=== PATIENT | female | born 1950 | race Caucasian/White ===

== ENCOUNTER 2016-05-23 12:03 | Inpatient (IN) | payer MEDICARE, OTHER ==
[~2016-05-23] VITALS: Ht 162.6 cm; Wt 69.4 kg
--- NOTE | 2016-05-23 12:05 | NUR ---
AAOX3, BIB [facility] FROM HOME, AT 1130, WENT INSIDE HER HOME,C/O DIZZINESS,LEFT SIDED FACIAL DROOP, AND FELL ON HER KNEES,BLOOD SUGAR 118. 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 NEURO INTACT. NO FACIAL DROOPING NOTED. SKIN IS WARM AND DRY. ASSISTED TO HOSPITAL GOWN, PLACED ON MONITOR. DR REINA AT BS FOR EVAL.
--- NOTE | 2016-05-23 12:10 | NUR ---
PATIENT TRANSPORTED FOR CT HEAD VIA [facility].
[2016-05-23 12:16] LABS: BASOPHILS # (AUTO) 0.1 /CMM (0.0-0.2); BASOPHILS % (AUTO) 1.1 % (0.0-2.0); EOSINOPHILS # (AUTO) 0.2 /CMM (0.0-0.7); EOSINOPHILS % (AUTO) 1.9 % (0.0-6.0); HEMATOCRIT 40 % (33-45); HEMOGLOBIN 13.3 g/dL (11.5-14.8); LYMPHOCYTES % (AUTO) 33.4 % (20.0-44.0); MEAN CORPUSCULAR HEMOGLOBIN 27 PG (26.0-33.0); MEAN CORPUSCULAR HGB CONC 34 g/dl (31.0-36.0); MEAN CORPUSCULAR VOLUME 82 fL (82-100); MONOCYTES # (AUTO) 0.6 /CMM (0.1-1.30); MONOCYTES % (AUTO) 6.8 % (2.0-12.0); NEUTROPHILS % (AUTO) 56.8 % (43.0-81.0); PLATELET COUNT (AUTO) 247 /CMM (150-450); RDW COEFFICIENT OF VARIATION 13.7 (11.5-15.0); RED BLOOD CELL COUNT(AUTO) 4.85 MIL/uL (4.0-5.2); WHITE BLOOD COUNT (AUTO) 8.9 K/uL (4.3-11.0)
[2016-05-23] MEDS ORDERED: IV SET PRIMARY 1 EA INFUS.SET MC ONE (12:22)
[2016-05-23] MEDS ORDERED: IV NS 0.9% 500 ML IV ONE (12:22)
[2016-05-23] MEDS ORDERED: AMOX500T2 PO (12:25)
[2016-05-23] MEDS ORDERED: CETI10TA18 PO (12:25)
[2016-05-23] MEDS ORDERED: IV NS 0.9% 500 ML BAG IV ONE (12:30)
--- NOTE | 2016-05-23 12:32 | NUR ---
XRAY in progress at BS.
[2016-05-23 12:38] LABS: CALCIUM, SERUM 8.7 mg/dL (8.5-10.1); CARBON DIOXIDE 29 mmol/L (21-32); CHLORIDE 106 mmol/L (98-107); GFR 56 mL/min (>60); GLUCOSE 149 mg/dL (74-106); SODIUM SERUM 141 mmol/L (136-145); UREA NITROGEN, BLOOD 10 mg/dL (7-18)
[2016-05-23 12:39] LABS: TROPONIN I < 0.017 ng/mL (0.00-0.056)
[2016-05-23 12:41] LABS: ALANINE AMINOTRANSFERASE 22 U/L (12-78); ALBUMIN 3.6 g/dL (3.4-5.0); ALKALINE PHOSPHATASE 80 U/L (46-116); ASPARTATE AMINOTRANSFERASE 19 U/L (15-37); BILIRUBIN,DIRECT 0.1 mg/dL (0.0-0.2); BILIRUBIN,TOTAL 0.2 mg/dL (0.2-1.0); TOTAL PROTEIN, SERUM 6.8 g/dL (6.4-8.2)
--- NOTE | 2016-05-23 12:44 | NUR ---
DR REINA AT BS FOR AN UPDATE AND RE-EVAL.
[2016-05-23 12:51] LABS: INR 0.96 (0.87-1.13); PROTHROMBIN TIME 10.2 SECS (9.5-12.7)
--- NOTE | 2016-05-23 13:19 | NUR ---
PANEL CALLED FOR PT ADMIT. PHYSICIAN NOTIFIED.
--- NOTE | 2016-05-23 14:24 | NUR ---
Report given to MAGDA Muñiz for [employer] Tele 308
[2016-05-23 15:10] VITALS: BP 111/67
--- NOTE | 2016-05-23 15:19 | NUR ---
CHECK CASHIER NOTES DR. MARTIN PAGED FOR ADMIT ORDERS, PER HIM EPIC GROUP TO COVER. DR. HAIM RAMIREZ PAGED FOR ADMIT ORDERS.
--- NOTE | 2016-05-23 15:20 | NUR ---
INDUSTRIAL TRACTOR DRIVER NOTES PATIENT ADMITTED FROM ER, DX; SYNCOPE BY SAVANNA PANDYA INTEGRATION SOLUTION ARCHITECT [COVERING FOR DR. MARTIN]. AAO X 3, ON RA, NOT IN ANY DISTRESS, NO SOB, PLACED ON TELEMETRY - SR HR 63, DENIES PAIN OR DISCOMFORT, LFA G20 AND RAC G18 IV ACCESS, FLUSHES WELL, BOTH SITES CLEAR. NO DIZZINESS, NO DEFICITS, BILATERAL HANDS, STRONG AND EQUAL SURVEYOR OIL WELL DIRECTIONAL, NO FACIAL DROOP. NO N/V, ABLE TO AMBULATE TO BATHROOM, STEADY GAIT. PLACED ON CARDIAC DIET. UNIT ORIENTATION DONE AND USE OF CALL LIGHT. BED LOW AND LOCKED. SAFETY MEASURES IN PLACE. WILL CONTINUE TO MONITOR.
--- NOTE | 2016-05-23 15:49 | NUR ---
LYLE MAN NOTES SAVANNA PANDYA NP PAGED.
[2016-05-23 16:00] VITALS: BP 111/67
[2016-05-23] MEDS ORDERED: ZOLPIDEM TARTRATE 5 MG TABLET PO PRN (16:00)
[2016-05-23] MEDS ORDERED: ONDANSETRON HCL/PF 4 MG/2 ML VIAL IVP PRN (16:00)
[2016-05-23] MEDS ORDERED: ACETAMINOPHEN 325 MG TABLET PO PRN (16:00)
[2016-05-23] MEDS ORDERED: MAGNESIUM HYDROXIDE 30 ML UDC PO PRN (16:00)
[2016-05-23] MEDS ORDERED: MAG HYDROX/AL HYDROX/SIMETH 30 ML UDC PO PRN (16:00)
[2016-05-23 18:00] VITALS: BP 111/67
--- NOTE | 2016-05-23 18:17 | NUR ---
RN CLOSING NOTES PATIENT IN BED, RESTING COMFORTABLY, AAO X 3, ON RA, NOT IN ANY DISTRESS, NO SOB, DENIES PAIN OR DISCOMFORT, LFA G20 AND RAC G18 IV ACCESS, FLUSHES WELL, BOTH SITES CLEAR. 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 NO N/V, ABLE TO AMBULATE TO BATHROOM, STEADY GAIT. ON CARDIAC DIET. CALL LIGHT WITHIN REACH, BED LOW AND LOCKED. SAFETY MEASURES IN PLACE. ALL NEEDS MET AT THIS TIME. WILL ENDORSE TO NEXT SHIFT FOR [place].
--- NOTE | 2016-05-23 19:30 | NUR ---
MS RN NOTE PATIENT STABLE. NO PAIN OR DISCOMFORT AT THIS TIME. PATIENT DENIES ANY SYNCOPE. IV SITE INTACT WITH NO REDNESS NOTED. BED LOCKED AND IN LOWEST POSITION. SIDE RAILS UP, CALL LIGHT WITHIN REACH. WILL CONTINUE TO MONITOR.
[2016-05-23 20:00] VITALS: BP 120/70
[2016-05-23] MEDS ORDERED: clonazePAM 1 MG TABLET ONE (22:57)
[2016-05-23] MEDS: clonazePAM 1 MG TABLET PO PRN (23:05)
[2016-05-23 23:40] VITALS: BP 120/70
[2016-05-24] MEDS: HYDROCODONE/APAP 5/325MG 1 EACH TABLET PO PRN ×2 (02:31→08:54)
--- NOTE | 2016-05-24 06:09 | NUR ---
MS RN NOTE PATIENT AWAKE AND ALERT IN BED. NO DISCOMFORT OR PAIN AT THIS TIME. ALL NEEDS MET AND ATTENDED TO. WILL ENDORSE TO DAY SHIFT FOR [place].
[2016-05-24 06:43] LABS: BASOPHILS % (AUTO) 0.3 % (0.0-2.0); EOSINOPHILS # (AUTO) 0.2 /CMM (0.0-0.7); EOSINOPHILS % (AUTO) 1.7 % (0.0-6.0); HEMATOCRIT 37 % (33-45); HEMOGLOBIN 12.1 g/dL (11.5-14.8); LYMPHOCYTES % (AUTO) 43.9 % (20.0-44.0); MEAN CORPUSCULAR HEMOGLOBIN 27 PG (26.0-33.0); MEAN CORPUSCULAR HGB CONC 33 g/dl (31.0-36.0); MEAN CORPUSCULAR VOLUME 83 fL (82-100); MONOCYTES # (AUTO) 0.8 /CMM (0.1-1.30); MONOCYTES % (AUTO) 8.8 % (2.0-12.0); NEUTROPHILS # (AUTO) 4.2 /CMM (1.8-8.9); NEUTROPHILS % (AUTO) 45.3 % (43.0-81.0); PLATELET COUNT (AUTO) 256 /CMM (150-450); RDW COEFFICIENT OF VARIATION 13.4 (11.5-15.0); RED BLOOD CELL COUNT(AUTO) 4.47 MIL/uL (4.0-5.2); WHITE BLOOD COUNT (AUTO) 9.2 K/uL (4.3-11.0)
[2016-05-24] MEDS ORDERED: PANTOPRAZOLE 40 MG TABLET.DR PO SCH (07:30)
[2016-05-24 07:40] LABS: CALCIUM, SERUM 8.7 mg/dL (8.5-10.1); CREATININE 0.7 mg/dL (0.6-1.3); MAGNESIUM 1.9 mg/dL (1.8-2.4); PHOSPHORUS 3.9 mg/dL (2.5-4.9); POTASSIUM 3.9 mmol/L (3.5-5.1)
[2016-05-24 08:00] VITALS: BP 116/63
--- NOTE | 2016-05-24 08:00 | NUR ---
MS RN AM NOTES RECEIVED PT ALERT,AWAKE AND AMBULATING BACK AND FORTH IN THE HALLWAY,RESTLESS AND VERY EAGER TO GO HOME BECAUSE SHE WANTS TO CELEBRATE [place] [employer] YEAR WITH HER FAMILY.DENIES PAIN OR DISTRESS.WILL NOTIFY .
[2016-05-24] MEDS: clonazePAM 1 MG TABLET PO PRN (08:53)
[2016-05-24] MEDS ORDERED: AMOXICILLIN TRIHYDRATE 250 MG CAPSULE PO SCH (09:00)
--- NOTE | 2016-05-24 11:20 | NUR ---
DISCHARGED PT HOME WITH STABLE V/S DENYING ANY PAIN OR DISTRESS.PT REFUSED PNEUMONIA VACCINE AND WILL GET IT FROM HER PMD'S CLINIC.DISCHARGED HOME ACCOMPANIED BY HER DAUGHTER.
== END 2016-05-24 11:30 | disposition home or self-care (01) | DRG 880 ==
LOC: ER 12:05 → MED 14:36
PROVIDERS: ADMIT Legal Medicine; ATTEND Legal Medicine
DX: F41.9 Anxiety disorder, unspecified (principal); G93.41 Metabolic encephalopathy; J98.11 Atelectasis; R55 Syncope and collapse; E78.5 Hyperlipidemia, unspecified; I25.10 Atherosclerotic heart disease of native coronary artery without angina pectoris; E11.9 Type 2 diabetes mellitus without complications; I10 Essential (primary) hypertension; F32.9 Major depressive disorder, single episode, unspecified; F17.210 Nicotine dependence, cigarettes, uncomplicated; M17.11 Unilateral primary osteoarthritis, right knee
CPT/HCPCS: 36415; 70450-TC; 71010-TC; 73564-TC; 80048-TC; 80061-TC; 80076-TC; 82962-TC; 83735-TC; 84100-TC; 84484-TC; 85025-TC; 85730-TC; 87081-TC; 93307-TC; A4606; J7040; Z7610

== ENCOUNTER 2016-06-08 10:35 | Outpatient (CLI) | payer MEDICARE, OTHER ==
[~2016-06-08 10:35] MED LIST: AMOX500T2 PO; CETI10TA18 PO
[2016-06-08] MEDS ORDERED: REGADENOSON 0.4 MG/5 ML DISP.SYRIN IVP ONE (11:30)
== END 2016-06-08 23:59 | disposition home or self-care (01) ==
LOC: RAD 10:35
PROVIDERS: ATTEND Internal Medicine Interventional Cardiology
DX: R07.9 Chest pain, unspecified (principal); R55 Syncope and collapse
CPT/HCPCS: 78452; A9502; J2785